=== PATIENT | male | born 1935 | race Caucasian/White ===

== ENCOUNTER 2018-02-21 15:21 | Day surgery (SDC) | payer OTHER ==
[2018-02-21] MEDS ORDERED: PROPOFOL 20 ML (17:36)
== END 2018-02-21 18:35 ==
LOC: SDS 18:35
DX: K94.13 Enterostomy malfunction (principal); R13.10 Dysphagia, unspecified; E11.9 Type 2 diabetes mellitus without complications; I10 Essential (primary) hypertension
CPT/HCPCS: 49451

== ENCOUNTER 2018-04-09 11:51 | Day surgery (SDC) | payer OTHER, MEDICARE ==
[~2018-04-09 11:51] MED LIST: LIDOCAINE 2% (SDV) 5 ML INJ
[2018-04-09] MEDS ORDERED: ETOMIDATE 20 MG INJ (16:18)
== END 2018-04-09 17:57 | disposition home or self-care (01) ==
LOC: GIL 11:51
DX: R13.14 Dysphagia, pharyngoesophageal phase (principal); K20.8 Other esophagitis; K22.10 Ulcer of esophagus without bleeding
CPT/HCPCS: 43246

== ENCOUNTER 2018-04-21 08:48 | Inpatient (IN) | payer MEDICARE, OTHER ==
[2018-04-21] MEDS ORDERED: ALBUTEROL/IPRATROPIUM (NEB) 3 ML AMP NEB (09:00)
[2018-04-21] MEDS ORDERED: GUAIFENESIN 20 MG/ML 5ML CUP PO (09:00)
[2018-04-21] MEDS ORDERED: ACETAMINOPHEN 650MG/20.3ML CUP JT (09:00)
[2018-04-21] MEDS: HEPARIN 5,000 UNIT/0.5 ML VIAL SC (09:00)
[2018-04-21] MEDS ORDERED: POLYETHYLENE GLYCOL 17 GM PACKET JT (09:00)
[2018-04-21] MEDS ORDERED: BISACODYL 10 MG SUPP PR (09:00)
[2018-04-21] MEDS ORDERED: ACETAMINOPHEN 650MG/20.3ML CUP GTB (09:30)
[2018-04-21] MEDS ORDERED: ALBUTEROL/IPRATROPIUM (NEB) 3 ML AMP HHN (09:30)
[2018-04-21] MEDS ORDERED: MICONAZOLE 2% 30 GM CR TOP (09:30)
[2018-04-21] MEDS ORDERED: ZYVOX 600 MG TAB PO (09:30)
[2018-04-21] MEDS ORDERED: MICONAZOLE 2% 15 GM CR TOP (09:46)
[2018-04-21] MEDS ORDERED: GLUCAGON 1 MG INJ IM (10:00)
[2018-04-21] MEDS ORDERED: GLUCOSE GEL 15 GRAM TUBE BUCCAL (10:00)
[2018-04-21] MEDS ORDERED: GLUCOSE GEL 15 GRAM TUBE PO ×2 (10:00)
[2018-04-21] MEDS ORDERED: DEXTROSE 50% 50 ML SYRINGE IV ×3 (10:00→18:00)
[2018-04-21] MEDS ORDERED: NORepinephrine 8MG/250 ML (PMX 250 ML (10:09)
[2018-04-21] MEDS: NORepinephrine 8MG/250 ML (PMX 250 ML IV ×3 (10:23→17:40)
[2018-04-21 10:31] LABS: ALANINE AMINOTRANSFERASE 13 IU/L (13-69); ALBUMIN 2.8 g/dl (3.3-4.9); ALKALINE PHOSPHATASE 210 IU/L (42-121); ASPARTATE AMINO TRANSFERASE 54 IU/L (15-46); TOTAL PROTEIN 6.6 g/dl (6.1-8.1)
[2018-04-21] MEDS: ACCU-CHEK XX ×3 (11:00→21:00)
[2018-04-21] MEDS ORDERED: metroNIDAZOLE 250 MG TAB GTB (12:00)
[2018-04-21] MEDS: metroNIDAZOLE 500 MG TAB GTB ×2 (12:00→17:17)
[2018-04-21] MEDS: LINEZOLID 600 MG/D5W (PMX) 300 ML IVPB ×2 (12:34→21:10)
[2018-04-21] MEDS: RIFAXIMIN 200 MG TAB PEG ×2 (13:00→22:42)
[2018-04-21] MEDS: INSULIN ASPART [NOVOLOG] 3 ML PEN SC ×3 (13:00→21:00)
[2018-04-21] MEDS: IPRATROPIUM (HFA) 12.9 GM INHALER INH ×2 (14:00→19:44)
[2018-04-21] MEDS: ALBUTEROL HFA 8 GM INHALER INH ×2 (14:00→19:44)
[2018-04-21] MEDS: MEROPENEM 500MG/50 ML (PMX) 50 ML IVPB ×2 (14:29→21:09)
[2018-04-21 14:31] LABS: ABNORMAL IP MESSAGE 1; HEMOGLOBIN 7.7 g/dl (14.0-18.0); MEAN CORPUSCULAR HEMOGLOBIN 29.5 pg (29.0-33.0); MEAN CORPUSCULAR HGB CONC 28.5 g/dl (32.0-37.0); MEAN CORPUSCULAR VOLUME 103.4 fl (82.0-101.0); MEAN PLATELET VOLUME 11.9 fl (7.4-10.4); NUCLEATED RED BLOOD CELLS% 1.1 /100WBC (0.0-0.0); PLATELET COUNT 295 10^3/UL (140-415); POSITIVE DIFF @See below; RED BLOOD COUNT 2.61 10^6/ul (4.70-6.10); RED CELL DISTRIBUTION WIDTH 18.4 % (11.5-14.5)
[2018-04-21 14:31] LABS: HEMOGLOBIN 7.7 g/dl (14.0-18.0); WHITE BLOOD COUNT 44.2 10^3/ul (4.8-10.8)
[2018-04-21 14:33] LABS: ADD MAN DIFF? YES
[2018-04-21] MEDS: METOCLOPRAMIDE 10 MG INJ IV ×2 (14:33→21:12)
[2018-04-21 14:50] LABS: ALANINE AMINOTRANSFERASE 26 IU/L (13-69); ALBUMIN 2.8 g/dl (3.3-4.9); ALBUMIN/GLOBULIN RATIO 0.68; ALKALINE PHOSPHATASE 193 IU/L (42-121); ANION GAP 25 (5-13); ASPARTATE AMINO TRANSFERASE 76 IU/L (15-46); BLOOD UREA NITROGEN 81 mg/dl (7-20); CALCIUM 8.9 mg/dl (8.4-10.2); CARBON DIOXIDE 11 mmol/L (21-31); CHLORIDE 109 mmol/L (97-110); CREATININE 6.13 mg/dl (0.61-1.24); GLUCOSE 139 mg/dl (70-220); POTASSIUM 4.6 mmol/L (3.5-5.1); SODIUM 145 mmol/L (135-144); TOTAL PROTEIN 6.9 g/dl (6.1-8.1)
[2018-04-21 14:57] LABS: LACTIC ACID 10.7 mmol/L (0.5-2.0)
[2018-04-21 16:15] LABS: AADO2 Arterial 163.6 mmHg (7.0-24.0); Allen Test ACCEPTAB; Arterial Base Excess -25.1 mmol/L (-3.0-3); Arterial Blood Gas Oxygen Sat 97.8 mmHG (95.0-100.0); Arterial COHb 0.2 % (0.0-3.0); Arterial Fraction of Oxyhgb 97.1 % (93.0-99.0); Arterial HCO3 7.2 mmol/L (22.0-26.0); Arterial MetHb 0.5 % (0.0-1.5); Arterial pCO2 38.3 mmhg (35-45); MODE VENT - AC; Site Right Radial
[2018-04-21] MEDS ORDERED: NA BICARBONATE 8.4% 50 ML SYG (16:20)
[2018-04-21] MEDS: NA BICARBONATE 8.4% 50 ML SYG IV (16:23)
[2018-04-21] MEDS: EPOETIN 10000 UNITS/1 ML INJ (ESRD) SC (17:00)
[2018-04-21] MEDS: LANSOPRAZOLE 30 MG CAP GTB (17:17)
[2018-04-21] MEDS: SODIUM BICARBONATE (IV ADD) 150 MEQ in DEXTROSE 5% 850 ML IV (17:17)
[2018-04-21] MEDS ORDERED: LIDOCAINE 1% (MDV) 20 ML INJ (17:38)
[2018-04-21] MEDS ORDERED: ACCU-CHEK XX (18:00)
[2018-04-21] MEDS ORDERED: INSULIN HUMAN REGULAR 100 UNIT in SOD CHLORIDE 0.9% 99 ML IV (18:00)
[2018-04-21] MEDS: VASOPRESSIN 60 UNIT in DEXTROSE 5% 57 ML IV (18:25)
[2018-04-21] MEDS: LIDOCAINE 1% (MDV) 20 ML INJ SC (18:26)
[2018-04-21 19:31] LABS: ANISOCYTOSIS 1+ (0-0); BAND NEUTROPHILS #M 15.4 10^3/ul (0.0-0.6); BAND NEUTROPHILS % (M) 35 % (0-4); GIANT THROMBO% (M) 5 % (0-0); HYPOCHROMASIA 1+ (0-0); LYMPHOCYTES #M 1.3 10^3/ul (0.8-2.9); LYMPHOCYTES % (M) 3 % (15-51); METAMYELOCYTES #M 0.4 10^3/ul (0.0-0.0); METAMYELOCYTES %M 1 % (0-0); MICROCYTOSIS 1+ (0-0); MONOCYTE #M 1.3 10^3/ul (0.3-0.9); MONOCYTES % (M) 3 % (0-11); PLATELET ESTIMATE NORMAL; POLYCHROMASIA 1+ (0-0); SEG NEUT #M 32.4 10^3/ul (1.6-7.5); SEGMENTED NEUTROPHILS (M) % 58 % (39-77); SMUDGE%M 1 % (0-0)
[2018-04-21] MEDS ORDERED: INSULIN DETEMIR [LEVEMIR] (100 UNITS/ML) SYG SC (20:00)
[2018-04-21] MEDS ORDERED: LATANOPROST 0.005% 2.5 ML OPH LEFT EYE (21:00)
[2018-04-21] MEDS: NEUTRA-PHOS 250 MG PACKET GTB (21:09)
[2018-04-21] MEDS: MICONAZOLE 2% 15 GM CR TOP (21:13)
[2018-04-21] MEDS: MUPIROCIN 2% 22 GM OINT TOP (21:22)
[2018-04-21] MEDS: DEXTROSE 50% 50 ML SYRINGE IV (21:31)
[2018-04-21] MEDS: CHLORHEXIDINE GLUCONATE 15 ML UD CUP MT (21:50)
[2018-04-21] MEDS: LATANOPROST 0.005% 2.5 ML OPH LEFT EYE (21:50)
[2018-04-21] MEDS: HEPARIN 5,000 UNIT/1 ML VIAL SC (21:53)
[2018-04-21] MEDS: NORepinephrine 32 MG in DEXTROSE 5% 218 ML IV (22:06)
[2018-04-22] MEDS: metroNIDAZOLE 500 MG TAB GTB ×4 (00:52→18:00)
[2018-04-22] MEDS: INSULIN ASPART [NOVOLOG] 3 ML PEN SC ×6 (01:00→20:55)
[2018-04-22] MEDS: PHENYLephrine 20MG IN 250 ML 250 ML IV ×3 (01:00→08:13)
[2018-04-22] MEDS: ALBUTEROL HFA 8 GM INHALER INH ×4 (01:21→19:15)
[2018-04-22] MEDS: IPRATROPIUM (HFA) 12.9 GM INHALER INH ×4 (01:21→19:15)
[2018-04-22] MEDS: ACCU-CHEK XX ×6 (01:39→20:47)
[2018-04-22] MEDS: SODIUM BICARBONATE (IV ADD) 150 MEQ in DEXTROSE 5% 850 ML IV ×2 (04:25→15:31)
[2018-04-22] MEDS: DEXTROSE 50% 50 ML SYRINGE IV ×2 (04:33→21:01)
[2018-04-22] MEDS: VASOPRESSIN 60 UNIT in DEXTROSE 5% 57 ML IV ×2 (04:38→21:02)
[2018-04-22] MEDS: LEVOTHYROXINE 50 MCG TAB NGT (05:05)
[2018-04-22] MEDS: METOCLOPRAMIDE 10 MG INJ IV ×3 (05:05→21:01)
[2018-04-22] MEDS: LANSOPRAZOLE 30 MG CAP GTB ×2 (05:05→18:00)
[2018-04-22 05:32] LABS: ABNORMAL IP MESSAGE 1; HEMATOCRIT 28.3 % (42.0-52.0); HEMOGLOBIN 7.5 g/dl (14.0-18.0); MEAN CORPUSCULAR HEMOGLOBIN 29.4 pg (29.0-33.0); MEAN CORPUSCULAR HGB CONC 26.5 g/dl (32.0-37.0); NUCLEATED RED BLOOD CELLS% 2.1 /100WBC (0.0-0.0); PLATELET COUNT 248 10^3/UL (140-415); POSITIVE DIFF @See below; RED BLOOD COUNT 2.55 10^6/ul (4.70-6.10); RED CELL DISTRIBUTION WIDTH 18.6 % (11.5-14.5)
[2018-04-22 05:32] LABS: WHITE BLOOD COUNT 49.7 10^3/ul (4.8-10.8)
[2018-04-22 05:50] LABS: ADD MAN DIFF? YES
[2018-04-22 06:02] LABS: ANION GAP 40 (5-13); BLOOD UREA NITROGEN 79 mg/dl (7-20); CALCIUM 8.8 mg/dl (8.4-10.2); CHLORIDE 101 mmol/L (97-110); CREATININE 6.57 mg/dl (0.61-1.24); GLUCOSE 170 mg/dl (70-220); MAGNESIUM 2.2 mg/dl (1.7-2.5); SODIUM 147 mmol/L (135-144)
[2018-04-22 06:23] LABS: PHOSPHORUS 14.3 mg/dl (2.5-4.9)
[2018-04-22 06:24] LABS: CARBON DIOXIDE 6 mmol/L (21-31); POTASSIUM 6.6 mmol/L (3.5-5.1)
[2018-04-22 06:26] LABS: LACTIC ACID > 24.0 mmol/L (0.5-2.0)
[2018-04-22 06:48] LABS: AADO2 Arterial 176.9 mmHg (7.0-24.0); Arterial Blood Gas Oxygen Sat 98.5 mmHG (95.0-100.0); Arterial COHb 0.3 % (0.0-3.0); Arterial Fraction of Oxyhgb 97.3 % (93.0-99.0); Arterial HCO3 3.8 mmol/L (22.0-26.0); Arterial MetHb 0.9 % (0.0-1.5); Arterial pCO2 32.4 mmhg (35-45); MODE VENT - AC; Site Right Radial
[2018-04-22] MEDS ORDERED: LEVOTHYROXINE 50 MCG TAB PO (07:00)
[2018-04-22] MEDS: NA BICARBONATE 8.4% 50 ML SYG IV (07:02)
[2018-04-22] MEDS ORDERED: INSULIN GLARGINE [LANTus] (100 UNITS/ML) SYG SC (08:00)
[2018-04-22] MEDS: POLYETHYLENE GLYCOL 17 GM PACKET GTB ×2 (08:07→14:02)
[2018-04-22] MEDS: RIFAXIMIN 200 MG TAB PEG ×3 (08:07→20:47)
[2018-04-22] MEDS: MUPIROCIN 2% 22 GM OINT TOP ×2 (08:59→20:48)
[2018-04-22] MEDS: MICONAZOLE 2% 15 GM CR TOP ×2 (08:59→20:47)
[2018-04-22] MEDS: MEROPENEM 500MG/50 ML (PMX) 50 ML IVPB ×2 (08:59→20:46)
[2018-04-22] MEDS ORDERED: LINAGLIPTIN 5 MG TABLET PO (09:00)
[2018-04-22] MEDS: PHENYLephrine 160 MG in DEXTROSE 5% 484 ML IV ×2 (09:39→18:35)
[2018-04-22] MEDS: LINEZOLID 600 MG/D5W (PMX) 300 ML IVPB ×2 (09:40→20:46)
[2018-04-22] MEDS: CHLORHEXIDINE GLUCONATE 15 ML UD CUP MT ×2 (09:54→20:46)
[2018-04-22] MEDS: HEPARIN 5,000 UNIT/1 ML VIAL SC ×2 (10:09→20:55)
[2018-04-22 13:25] LABS: ANISOCYTOSIS 2+ (0-0); BAND NEUTROPHILS #M 12.4 10^3/ul (0.0-0.6); BAND NEUTROPHILS % (M) 25 % (0-4); BURR CELLS 1+ (0-0); ERYTHROBLAST% (NRBC) (M) 6 % (0-0); GIANT THROMBO% (M) 3 % (0-0); LYMPHOCYTES #M 1.9 10^3/ul (0.8-2.9); LYMPHOCYTES % (M) 4 % (15-51); METAMYELOCYTES #M 0.9 10^3/ul (0.0-0.0); METAMYELOCYTES %M 2 % (0-0); MICROCYTOSIS 1+ (0-0); MONOCYTE #M 1.4 10^3/ul (0.3-0.9); MONOCYTES % (M) 3 % (0-11); MYELOCYTES #M 0.4 10^3/ul (0.0-0.0); MYELOCYTES % (M) 1 % (0-0); PLATELET ESTIMATE NORMAL; POIKILOCYTOSIS 1+ (0-0); POLYCHROMASIA 1+ (0-0); SEG NEUT #M 38.5 10^3/ul (1.6-7.5); SEGMENTED NEUTROPHILS (M) % 65 % (39-77); SMUDGE%M 4 % (0-0); TOXIC GRANULATION 1+ (0-0)
[2018-04-22] MEDS: NORepinephrine 32 MG in DEXTROSE 5% 218 ML IV (13:58)
[2018-04-22] MEDS ORDERED: LORAZEPAM 2 MG INJ IV (19:30)
[2018-04-22] MEDS: LATANOPROST 0.005% 2.5 ML OPH LEFT EYE (20:48)
[2018-04-23] MEDS: metroNIDAZOLE 500 MG TAB GTB ×2 (00:16→05:25)
[2018-04-23] MEDS: INSULIN ASPART [NOVOLOG] 3 ML PEN SC ×2 (01:00→05:00)
[2018-04-23] MEDS: SODIUM BICARBONATE (IV ADD) 150 MEQ in DEXTROSE 5% 850 ML IV (01:37)
[2018-04-23] MEDS: ALBUTEROL HFA 8 GM INHALER INH (01:40)
[2018-04-23] MEDS: IPRATROPIUM (HFA) 12.9 GM INHALER INH (01:40)
[2018-04-23] MEDS: PHENYLephrine 160 MG in DEXTROSE 5% 484 ML IV (03:33)
[2018-04-23] MEDS: VASOPRESSIN 60 UNIT in DEXTROSE 5% 57 ML IV (04:01)
[2018-04-23] MEDS: LANSOPRAZOLE 30 MG CAP GTB (05:25)
[2018-04-23] MEDS: METOCLOPRAMIDE 10 MG INJ IV (05:25)
[2018-04-23] MEDS: LEVOTHYROXINE 50 MCG TAB NGT (05:25)
[2018-04-23] MEDS ORDERED: morphine 2 MG INJ IV (06:30)
[2018-04-25 11:47] LABS: PROCALCITONIN 10.91 ng/mL (<0.10)
== END 2018-04-23 08:20 | disposition expired | DRG 314 ==
LOC: ICU 08:48
PROC: 05HM33Z Insertion of Infusion Device into Right Internal Jugular Vein, Percutaneous Approach (ICD-10-PCS; principal; 2018-04-21)
PROC: 5A1945Z Respiratory Ventilation, 24-96 Consecutive Hours (ICD-10-PCS; 2018-04-21)
PROC: 5A1D70Z Performance of Urinary Filtration, Intermittent, Less than 6 Hours Per Day (ICD-10-PCS; 2018-04-21)
DX: T80.219A Unspecified infection due to central venous catheter, initial encounter (principal); A41.9 Sepsis, unspecified organism; R65.21 Severe sepsis with septic shock; N18.6 End stage renal disease; G92 Toxic encephalopathy; J18.9 Pneumonia, unspecified organism; K65.1 Peritoneal abscess; G93.1 Anoxic brain damage, not elsewhere classified; J96.11 Chronic respiratory failure with hypoxia; I12.0 Hypertensive chronic kidney disease with stage 5 chronic kidney disease or end stage renal disease; E87.4 Mixed disorder of acid-base balance; Z99.11 Dependence on respirator [ventilator] status; Y95 Nosocomial condition; Z86.74 Personal history of sudden cardiac arrest; Z93.1 Gastrostomy status; Z93.0 Tracheostomy status; R13.10 Dysphagia, unspecified; K21.9 Gastro-esophageal reflux disease without esophagitis; E11.22 Type 2 diabetes mellitus with diabetic chronic kidney disease; Z99.2 Dependence on renal dialysis; Z99.81 Dependence on supplemental oxygen; K42.9 Umbilical hernia without obstruction or gangrene; D63.1 Anemia in chronic kidney disease; E87.5 Hyperkalemia; E03.9 Hypothyroidism, unspecified; H54.40 Blindness, one eye, unspecified eye; J44.9 Chronic obstructive pulmonary disease, unspecified; I44.1 Atrioventricular block, second degree; E83.9 Disorder of mineral metabolism, unspecified; Z66 Do not resuscitate
CPT/HCPCS: 36600; 71045; 74018; 80048; 80053; 80076; 82803; 82962; 83605; 83735; 84100; 84145; 85018; 85025; 87040; 87070; 87081; 90686; 93005; 94002; 94003; 94640